=== PATIENT | male | born 1955 | race Caucasian/White ===

== ENCOUNTER → 2019-09-11 11:13 | Outpatient (CLI) | payer BC ==
[2015-01-30 11:49] VITALS: BMI 22.0
[~2019-09-11 11:13] MED LIST: ACETAMINOPHEN325 MG PO; AMBIEN5 MG PO; CLEOCIN HCL300 MG PO; DIFLUCAN100 MG PO; JEVITY 1.2 CAL237 ML GT; LEVAQUIN500 MG PO; MUCINEX600 MG PO; PROTONIX40 MG PO; PROVENTIL HFA6.7 GM INH; PULMICORT0.5 MG/21 INH
== END | disposition home or self-care (01) ==
LOC: D.RT 11:00
PROVIDERS: ATTEND Family Medicine
DX: R06.00 Dyspnea, unspecified (principal)

== ENCOUNTER 2019-11-03 15:32 | Inpatient (IN) | payer BC ==
[~2019-11-03] VITALS: Ht 170.2 cm; Wt 68.2 kg
--- NOTE | ~2019-11-03 | HEMODYNAMI ---
PATIENT:MARISSA REILLY HILARY MEDICAL RECORD: [id number] : 57 LOCATION[facility] [id number] ADMISSION DATE: 11/11/19 Generatedon:11/11/201910:18 Patient name: MARISSA REILLY Patient #: [id number] SSN: : 1955 Date of study: 11/11/2019 Page: Of Hemodynamic Procedure Report Patient Data Patient Demographics Procedure consent was obtained First Name: MARISSA Gender: Male Last Name: MELBA : 1955 [facility] Initial: HILARY Age: 64 year(s) Patient #: [id number] Race: Unknown Additional ID: [id number] Contact details Address: [address] [place] [address] State: [place] City: [place] Zip code: [address] Past Medical History Allergies: No known allergies Admission Admission Data Admission Date: 11/11/2019 Admission Time: 5:41 Room #: [facility] Weight (lbs.): 150 Weight (kg.): 68.04 Procedure Procedure Types Cath Procedure Peripheral Cath Diagnostic Procedure Photovoltaic Installer Peripheral Procedures Peripheral vascular Intervention Stent Carotid Stent Procedure Description Procedure Date Procedure Date: 11/11/2019 Procedure Start Time: 8:50 Procedure Staff Name Function Mariano Stephenson MD Performing Physician Olena Vasquez RT Test Engineering Intern Lashay Claros RN Nurse Noemy HUGHES RN Nurse Glenn Molina RT Scrub Procedure Data Cath Procedure Fluoroscopy Diagnostic fluoroscopy Total fluoroscopy Time: time: 19.8 min 19.8 min Diagnostic fluoroscopy Total fluoroscopy dose: 640 dose: 640 mGy mGy Contrast Material Contrast Material Type Amount (ml) Isovue 300 70 Diagnostic catheters Device Type Used For End Catheter Placement Merit Impress Mahoney 5FR. 100CM catheter ([id number]) Merit ULTRA BOLUS FLUSH 5Fr 90CM catheter ([id number]) Procedure Medications Medication Administration Route Dosage Lidocaine 1% added to field 20 Heparin Flush Bag added to field 2 bags (1000units/500ml NS) Heparin Flush Bag added to field 2 bags (1000units/500ml NS) Fentanyl 25 mcg Versed 0.5 mg Heparin Bolus I.V. 4000 units Fentanyl 25 mcg Versed 0.5 mg Heparin Bolus I.V. 2000 units Fentanyl I.V. 50 mcg Versed 1 mg Hemodynamics Rest Heart Rate: 79 (bpm) Snapshots Pre Cath Intra NCS Post Cath Vital Signs Time Heart Resp SPO2 etCO2 NIBP (mmHg) Rhythm Pain Sedation Rate (ipm) (%) (mmHg) Status Level (bpm) 8:38:24 84 32 100 20.3 146/89(124) NSR 0 (11) 9(A) , No pain 8:42:34 82 25 100 33 146/86(120) NSR 0 (11) 9(A) , No pain 8:46:44 86 37 100 24.8 141/87(120) NSR 0 (11) 9(A) , No pain 8:51:00 88 31 100 28.5 152/88(121) NSR 0 (11) 9(A) , No pain 8:55:10 89 24 100 32.3 143/89(121) NSR 0 (11) 9(A) , No pain 8:59:16 99 26 100 24 138/101(117) NSR 0 (11) 9(A) , No pain 9:02:02 87 20 100 32.3 143/90(115) NSR 0 (11) 9(A) , No pain 9:06:16 88 19 100 31.5 143/80(99) NSR 0 (11) 9(A) , No pain 9:10:27 85 15 100 35.3 144/79(111) NSR 0 (11) 9(A) , No pain 9:14:38 85 16 100 34.5 132/84(111) NSR 0 (11) 9(A) , No pain 9:18:41 76 14 99 36.8 146/88(127) NSR 0 (11) 9(A) , No pain 9:22:55 80 17 100 34.5 132/76(107) NSR 0 (11) 9(A) , No pain 9:27:01 82 17 100 36 140/83(113) NSR 0 (11) 9(A) , No pain 9:31:15 79 17 100 35.3 125/72(96) NSR 0 (11) 9(A) , No pain 9:35:21 83 14 100 36 131/75(112) NSR 0 (11) 9(A) , No pain 9:39:26 82 18 100 33.8 133/81(113) NSR 0 (11) 9(A) , No pain 9:43:30 80 19 100 33 141/90(122) NSR 0 (11) 9(A) , No pain 9:47:40 78 17 100 24.8 140/80(116) NSR 0 (11) 9(A) , No pain 9:51:52 82 15 100 36.8 128/75(107) NSR 0 (11) 9(A) , No pain 9:55:58 77 18 100 32.3 141/82(123) NSR 0 (11) 9(A) , No pain 10:00:10 69 19 100 29.3 125/78(106) NSR 0 (11) 9(A) , No pain 10:04:16 72 14 100 35.3 127/78(109) NSR 0 (11) 9(A) , No pain 10:08:23 82 14 100 33.1 124/74(102) NSR 0 (11) 9(A) , No pain 10:12:27 79 12 100 28.6 125/78(106) NSR 0 (11) 9(A) , No pain 10:16:31 77 15 100 35.3 126/82(110) NSR 0 (11) 9(A) , No pain Medications Time Medication Route Dose Verified Delivered Reason Notes Effectiveness by by 8:43:27 Lidocaine 1% added 20ml Mariano Quintana for local to vial Sachin Stephenson anesthetic field MD GARCIA 8:43:38 Heparin Flush added 2 Mariano Quintana used for Bag to bags Sachin Stephenson procedure (1000units/500ml field MD GARCIA NS) 8:43:39 Heparin Flush added 2 Mariano Quintana used for Bag to bags Sachin Stephenson procedure (1000units/500ml field MD GARCIA NS) 8:51:41 Fentanyl 25 Mariano Metz for sedation mcg Sachin Claros RN, MD 8:51:50 Versed 0.5 Mariano Metz for sedation mg Sachin Claros RN, MD 8:57:44 Heparin Bolus I.V. 4000 Mariano Lashay for units Sachin Claros RN anticoagulation 9:03:51 Fentanyl 25 Mariano Lashay for sedation mcg Sachin Claros RN, MD 9:03:55 Versed 0.5 Mariano Lashay for sedation mg Sachin Claros RN, MD 9:25:39 Heparin Bolus I.V. 2000 Mariano Lashay for units Sachin Claros RN anticoagulation 9:59:52 Fentanyl I.V. 50 Mariano Lashay for sedation mcg Sachin Claros RN, MD 9:59:58 Versed 1 mg Mariano Lashay for sedation Sachin Claros RN, MD Procedure Log Time Note 7:42:30 Use device set IR Diagnostic 8:08:59 A Merit Impress Mahoney 5FR. 100CM catheter ([id number]) was advanced over the wire and used for . 8:09:00 CHOICE PT Extra Support J 300cm guide wire ([id number]) opened to steril e field. 8:09:01 Micropuncture VSI 4FR kit opened to sterile field. 8:09:02 MOTT 260 wire ([id number]) opened to sterile field. 8:09:04 SHEATH 5FR [place] (XSS083) opened to sterile field. 8:09:05 GLIDE WIRE ANGLE 260cm (FM6870) opened to sterile field. 8:09:06 BENTSON 145cm wire (X44948) opened to sterile field. 8:09:07 INFLATOR BasixTOUCH (CA1924) opened to sterile field. 8:09:08 TUBING Contrast Injection High Pressure (ICR539W) opened to sterile field. 8:09:09 Tegaderm 4 x 4 (1626W) opened to sterile field. 8:09:10 Sterile Angiographic Pack opened to sterile field. 8:09:11 Bag Decanter (2002S) opened to sterile field. 8:09:13 ACIST Manifold (83896) opened to sterile field. 8:09:14 ACIST Hand Control (29307) opened to sterile field. 8:09:15 ACIST Syringe (33141) opened to sterile field. 8:09:59 A Tessella ULTRA BOLUS FLUSH 5Fr 90CM catheter ([id number]) was advanced over the wire and used for . 8:10:03 - 8:21:54 Time tracking: Regular hours (M-F 7:00 - 5:00) 8:22:10 Plan of Care:Hemodynamics will remain stable., Cardiac rhythm will remain stable., Comfort level will be maintained., Respiratory function will remain adequate., Patient/ family verbilizes understanding of procedure., Procedure tolerated without complication., Recovers from procedure without complications.. 8:22:21 Patient received from Outpatients to IR Alert and oriented. Tansferred to table in Supine position. 8:22:26 Signed procedure consent form obtained from patient. 8:22:28 - 8:22:42 H&P Date Dictated: 11/11/2019 Within 30 days and on chart., H&P Addendum completed by physician on day of procedure. (MUST COMPLETE FOR ALL OUTPATIENTS). 8:22:51 Pre-procedure instructions explained to patient. 8:22:52 Pre-op teaching completed and patient verbalized understanding. 8:22:54 Family in waiting room. 8:22:57 Patient NPO since Midnight. 8:23:07 Patient allergic to No known allergies 8:23:11 Is the patient allergic to Iodine/contrast media? No. 8:23:14 Is patient on blood thinner?Yes 8:23:18 Patient diabetic? No. 8:23:21 - 8:23:24 ----Pre-sedation anethsthesia assessment.---- 8:23:30 Previous problem with sedation/anesthesia? No ? 8:23:33 Snore? Yes 8:23:37 Sleep apnea? No 8:23:40 Deviated septum? No 8:23:44 Opens mouth fully? Yes 8:23:49 Sticks out tongue? Yes 8:23:52 Airway obstruction? No ? 8:24:12 Dentures? No ? 8:24:19 Pre procedure: right dorsailis pedis pulse 1+ Palpable, but thready & weak; easily obliterated 8:24:27 Pre procedure: right posterior tibial pulse Doppler 8:24:37 Right groin area was prepped with chlora-prep and draped in sterile fashion 8:24:41 - 8:37:14 Baseline sample Acquired. 8:37:20 Vital chart was started 8:37:54 Full Disclosure recording started 8:38:01 - 8:43:27 Lidocaine 1% 20ml vial added to field was administered by Mariano erwin MD; for local anesthetic; Verbal order read back and verified. 8:43:38 Heparin Flush Bag (1000units/500ml NS) 2 bags added to field was administered by Mariano Stephenson MD; used for procedure; Verbal order read back and verified. 8:43:39 Heparin Flush Bag (1000units/500ml NS) 2 bags added to field was administered by Mariano Stephenson MD; used for procedure; Verbal order read back and verified. 8:47:46 Fire Safety Assessment: A--An alcohol-based skin anteseptic being used preoperatively., C--Open oxygen or nitrous oxide is being used. 8:47:51 1) 90+ Normal kidney functon but urine findings or structural abnormalities or genetic trait point to kidney disease. 8:47:56 Physician arrived 8:47:57 --------ALL STOP TIME OUT------ 8:47:57 Final Timeout: patient, procedure, and site verified with staff and physician. All members of the team are in agreement. 8:50:04 Procedure started. 8:50:09 Local anesthetic to right femoral artery with Lidocaine 1% by Mariano Stephenson MD.INITIAL ACCESS ONLY 8:50:56 Patient Weight : 150 lbs 8:51:01 Arterial access obtained using ultrasound guidance. 8:51:41 Fentanyl 25 mcg was administered by Lashay Claros RN; for sedation; Verbal order read back and verified. 8:51:50 Versed 0.5 mg was administered by Lashay Claros RN; for sedation; Verba l order read back and verified. 8:57:44 Heparin Bolus 4000 units I.V. was administered by Lashay Claros RN; for anticoagulation; Verbal order read back and verified. 9:01:22 TORQUE DEVICE PLASTIC .038 ( TD01) opened to sterile field. 9:03:51 Fentanyl 25 mcg was administered by Lashay Claros RN; for sedation; Verbal order read back and verified. 9:03:55 Versed 0.5 mg was administered by Lashay Claros RN; for sedation; Verba l order read back and verified. 9:06:32 Cook RAABE 6FR. 90cm guide sheath opened to sterile field. 9:14:25 SPIDER EMBOLIC PROTECTION DEVICE 5MM ([id number]) opened to sterile field. 9:18:32 Inflate balloon Inflation number: 1 A VIATRAC 4 x 2 x 135 balloon ([id number]) was prepped and advanced across the Undefined1 , then inflated . 9:18:48 PROTEGE RX TAPERED 8-6MM X 30MM X 135CM stent ([id number]) was deploye d across Undefined1 . 9:19:02 Inflate balloon Inflation number: 2 A VIATRAC 6 x 2 x 135 balloon ([id number]) was prepped and advanced across the Undefined1 , then inflated . 9:25:39 Heparin Bolus 2000 units I.V. was administered by Lashay Claros RN; for anticoagulation; Verbal order read back and verified. 9:31:05 CXI SUPPORT .035 135 CM STR catheter (I19655) opened to sterile field. 9:45:47 ROADRUNNER .035 145 glide wire (L68304) opened to sterile field. 9:50:38 EVERFLEX 8 x 60 Stent ([id number]) was deployed across Undefined2 . 9:51:12 Inflate balloon Inflation number: 1 A Evercross 8 x 6 x 135 Balloon ([id number]) was prepped and advanced across the Undefined2 , then inflated . 9:59:52 Fentanyl 50 mcg I.V. was administered by Lashay Claros RN; for sedation ; Verbal order read back and verified. 9:59:58 Versed 1 mg was administered by Lashay Claros RN; for sedation; Verbal order read back and verified. 10:00:23 SHEATH 6FR [place] (KBB677) opened to sterile field. 10:00:29 MYNX AIRPLANE FUELER 6FR/7FR (TS0904) opened to sterile field. 10:06:38 Procedure ended.(Physican Out) 10:06:56 Fluoroscopy time 19.80 minutes. 10:07:01 Fluoroscopy dose: 640 mGy 10:07:01 Flurop Dose total: 640 10:07:18 Contrast amount:Isovue 300 70ml. 10:07:34 Procedure and supply charges have been captured, reviewed, submitted an d are correct. 10:17:42 Report given to CVICU. 10:18:09 Vital chart was stopped Intervention Summary Intervention Notes Time ActionType Lesion and Equipment Used Action# Pressure Duration Attributes 9:18:32 Inflate Undefined1 VIATRAC 4 x 2 x 1 0 00:00 balloon 135 balloon ([id number]) 9:18:48 Deploy self Undefined1 PROTEGE RX 1 expanding TAPERED 8-6MM X stent 30MM X 135CM stent ([id number]) 9:19:02 Inflate Undefined1 VIATRAC 6 x 2 x 2 0 00:00 balloon 135 balloon ([id number]) 9:50:38 Deploy self Undefined2 EVERFLEX 8 x 60 1 expanding Stent stent ([id number]) 9:51:12 Inflate Undefined2 Evercross 8 x 6 1 0 00:00 balloon x 135 Balloon ([id number]) Device Usage Item Name Manufacture Quantity Catalog Number [facility] Minimal Lot# / Charge Number Stock Stock Serial# Code Merit Impress Merit 1 [id number] 190071 5 Mahoney 5FR. Medical 100CM catheter ([id number]) CHOICE PT Extra Hamlin 1 [id number] 24080511 972718 5 Support J 300cm Scientific guide wire (7340205T1) Micropuncture VSI VASCULAR 1 7266V 276609 556668 5 VSI 4FR kit SOLUTIONS MOTT 260 wire Cook Medical 1 P96882 298733 33600 905896 5 (L21736) SHEATH 5FR Terumo 1 XFB709 226706 667996 319892 5 [place] (WGF076) GLIDE WIRE Terumo 1 KI6659 877926 805324 326482 5 ANGLE 260cm (LN6996) BENTSON 145cm Cook Medical 1 R19971 043442 131212 5 wire (C58065) INFLATOR Merit 1 BP1271 360784 535133 328743 5 [employer] (RF9011) TUBING Contrast Merit 1 [id number] 064655 921872 825380 5 Injection High Medical Pressure (BTD910A) Tegaderm 4 x 4 3M 1 1626W 885589 537484 470557 5 (1626W) Sterile Cardinal 1 [id number] 844891 473502 5 Angiographic Health Pack Bag Decanter Microtek 1 2001S 012964 16035 446842 5 (2001S) Medical Inc. ACIST Manifold Acist 1 15599 264503 410369 999980 5 (72282) Medical Systems Inc ACIST Hand Acist 1 71083 156258 640021 349919 5 Control (45778) Medical Systems Inc ACIST Syringe Acist 1 80757 793993 961779 327629 20 (46248) Medical Systems Inc Merit ULTRA Merit 1 [id number] 405768 260903 5 BOLUS FLUSH 5Fr Medical 90CM catheter ([id number]) TORQUE DEVICE Hamlin 1 TD01 728484 014836 096143 5 PLASTIC .038 ( Scientific TD01) Cook RAABE 6FR. Cook Medical 1 B19208 969689 417929 5 90cm guide sheath SPIDER EMBOLIC Medtronic 1 [id number]-[id number] 393104 886955 5 PROTECTION DEVICE 5MM ([id number]) VIATRAC 4 x 2 x Tellez 1 6813700-11 325305 555980 898452 5 135 balloon Vascular ([id number]) VIATRAC 6 x 2 x Tellez 1 0607794-12 962897 536232 150046 5 135 balloon Vascular ([id number]) PROTEGE RX Medtronic 1 QADH-8-0-30-135 950738 875389 175724 5 [id number] TAPERED 8-6MM X 30MM X 135CM stent ([id number]) CXI SUPPORT AppNeta Medical 1 U12707 616399 524265 976275 5 .035 135 CM STR catheter (N58138) ROADRUNNER .035 Cook Medical 1 L32083 049532 207973 809730 5 145 glide wire (J60012) EVERFLEX 8 x 60 Medtronic 1 [id number] 054942 590871 160225 5 [id number] Stent [id number] ([id number]) Evercross 8 x 6 Medtronic 1 [id number] 456865 397857 469219 5 x 135 Balloon ([id number]) SHEATH 6FR Terumo 1 BDX335 241869 831094 802910 40 [place] (LVY226) MYNX AIRPLANE FUELER Access 1 CJ3908 406284 419701 5 [id number] 6FR/7FR Closure (AV4473) Signature Audit [place] Stage Time Signature Unsigned Intra-Procedure 11/11/2019 Olena Vasquez 10:18:05 AM RT(R) [place] [id number] [place] [address]
[2019-11-11] VITALS (25 sets, daily range): BP systolic 87–146; BP diastolic 45–79; Ht 170.2 cm; Wt 68.2 kg
[2019-11-11 06:30] LABS: CALC OSMOLALITY 280 mosm/kg (275-300); CALCIUM 9.4 mg/dL (8.5-10.1); CARBON DIOXIDE 29.4 mmol/L (21.0-32.0); CHLORIDE - SERUM 105 mmol/L (98-107); CREATININE - SERUM 0.8 mg/dL (0.6-1.3); GLUCOSE 98 mg/dL (74-106); POTASSIUM - SERUM 4.6 mmol/L (3.5-5.1); SODIUM 140 mmol/L (136-145); UREA NITROGEN 18 mg/dL (7-18); eGFR NON AFRICAN AMERICAN > 90 mL/min (90-120)
[2019-11-11 06:34] LABS: APTT 27.3 SECONDS (22.8-39.4)
[2019-11-11 06:35] LABS: INR 0.99 (0.85-1.17)
[2019-11-11 06:42] LABS: BASOPHILS 0.2 % (0-2); EOSINOPHILS 3.1 % (0-7); HEMATOCRIT 40.4 % (42.0-54.0); HEMOGLOBIN 13.7 g/dL (13.5-17.5); IMMATURE GRANULOCYTES 0.2 % (0-5); LYMPHOCYTES 7.2 % (15-50); MCH 31.4 pg (26.0-34.0); MCHC 33.9 g/dL (31.0-37.0); MCV 92.4 fL (80.0-100.0); MEAN PLATELET VOLUME 9.2 fL (7.4-10.4); MONOCYTES 11.9 % (2-11); NEUTROPHILS 77.4 % (40-80); PLATELET COUNT 171 10x3/uL (130-400); RBC 4.37 10x6/uL (4.20-6.10); RDW 12.6 % (11.5-14.5); WBC 5.5 10x3/uL (4.8-10.8)
[2019-11-11] MEDS ORDERED: PLAVIX75 MG PO (07:43)
[2019-11-11] MEDS ORDERED: ULTRAM50 MG PO (07:43)
--- NOTE | 2019-11-11 10:40 | NUR ---
PT ARRIVED BY STRETCHER. PLACED ON MONITORS. ASSESSMENT COMPLETED. VSS AT THIS TIME. FAMILY AT BEDSIDE.
--- NOTE | 2019-11-11 10:55 | NUR ---
PT RESTING COMFORTABLY. VSS. RIGHT GROIN DRESSING C/D/I. NO S/S OF HEMATOMA NOTED. CALL LIGHT WITHIN REACH. NO NEEDS AT THIS TIME.
--- NOTE | 2019-11-11 11:10 | NUR ---
PT RESTING COMFORTABLY. VSS. RIGHT GROIN DRESSING C/D/I. NO S/S OF HEMATOMA NOTED. CALL LIGHT WITHIN REACH. PPP X 4
--- NOTE | 2019-11-11 11:25 | NUR ---
RIGHT GROIN DRESSING C/D/I. NO S/S OF HEMATOMA NOTED. CALL LIGHT WITHIN REACH. VSS AT THIS TIME.
--- NOTE | 2019-11-11 12:00 | NUR ---
RIGHT GROIN DRESSING C/D/I. NO S/S OF HEMATOMA NOTED. CALL LIGHT WITHIN REACH. VSS AT THIS TIME. PPP X 4. NO NEURO CHANGES NOTED.
--- NOTE | 2019-11-11 12:30 | NUR ---
PT VOIDED APPROX 150cc OF YELLOW URINE IN URINAL WITHOUT DIFFICULTY.
--- NOTE | 2019-11-11 12:40 | NUR ---
PT'S AT BEDSIDE WITH TEDDY BUTTON SUPPLIES. PLAVIX AND ULTRAM CRUSHED AND PT'S GAVE MEDS VIA TEDDY BUTTON. TOLERATED WELL.
--- NOTE | 2019-11-11 13:33 | NUR ---
PT C/O INC PAIN IN LOWER BACK. NO BRUISING NOTED TO BACK. ASSESSED BY LOG ROLL. CALLED DR. WALKER AND UPDATED HIM. ORDERS RECEIVED.
--- NOTE | 2019-11-11 13:40 | NUR ---
PT RESTLESS. IV PAIN MEDICATION ADMINISTERED PER MD ORDERS. PT HAS DRY MOUTH AND STATES "MY MOUTH FEELS FUNNY". PUPILS EQUAL AND REACTIVE. ALL BOOKS SALESPERSON EQUAL AND REACTIVE. RIGHT GROIN DRESSING C/D/I. NO S/S OF HEMATOMA NOTED. PT ABLE TO SMILE AND BOTH SIDES OF FACE HAVE EQUAL MOVEMENT. PT STICKS OUT TONGUE AND IT IS SLIGHT RIGHT OF MIDLINE. WILL REASSESS IN A FEW MINUTES TO SEE IF DRY MOUTH RESOLVES WHEN PAIN MEDICATION IS ON BOARD AND PT IS MORE COMFORTABLE.
--- NOTE | 2019-11-11 13:50 | NUR ---
PT MORE RELAXED. REPORTS PAIN IS IMPROVED AND RATES IT 4/10 AT THIS TIME. VSS. PT'S SPEECH IS BACK TO BASELINE AND REPORTS HIS MOUTH DOESN'T "FEEL FUNNY" ANYMORE. GIVEN MOUTH SWABS TO HELP WITH HIS DRY MOUTH. NO NEURO DEFICITS NOTED.
--- NOTE | 2019-11-11 14:52 | NUR ---
PT'S HEAD OF BED INC TO 45 DEGREES. TOLERATED WELL. RIGHT GROIN DRESSING C/D/I. NO S/S OF HEMATOMA NOTED. SMALL AMOUNT OF BRUISING NOTED AT DRESSING SITE. PT'S AT BEDSIDE. BOLUS FEEDING COMPLETED TO PT'S TEDDY BUTTON. JEVITY 1.2. TOLERATED WELL.
--- NOTE | 2019-11-11 15:10 | NUR ---
DR. HACKETT AT BEDSIDE. SPEAKING WITH PT AND PT'S . UPDATED ON PT'S STATUS. PT'S RIGHT GROIN DRESSING C/D/I. NO S/S OF HEMATOMA NOTED.
--- NOTE | 2019-11-11 16:13 | NUR ---
REPORT GIVEN TO OLIVER AMIN RN.
--- NOTE | 2019-11-11 16:28 | NUR ---
REC'D PT TO CVICU. ALL MONITORING EQUIPMENT ATTACHED AND ALARMS SET.
--- NOTE | 2019-11-11 19:10 | NUR ---
RECIVED BEDSIDE SHIFT REPORT. PT IS SITTING UP HOB AT 30DEGREESE A&OX4. HIS VSS. LEFT WRIST SL CDI C NO S/S OF INFILTRATION. HE HAS A CHRONIC PEG TUBE CDI TO UPPER MID ABD, HE FEEDS SELF. RIGHT GROIN PROCEDURE SITE IS CDI WITH SLIGHTL DARK RED BLOOD THAT HAS BEEN THERE SINCE EARLIER TODAY WITH NO S/S OF FURTHER BLEEDING. SIT SHOWS NO SWELLING OR BRUISING. PT VOICES"IT DOESNT HURT". PERIPERIAL PULSES ARE +2 BILAT. ORIENTED TO USE OF CALL LIGHT WITHIN UNDERSTANDING. PROVIDED PT INCINTIVE SPIROMETER AND SHOWED HIM HOW TO USE AND TO TRY TO DO EVERY 2 HOURS TO PREVENT PNEUMONIA. HE VERBALIZED UNDERSTANDING. HE IS PLEASANT AND C/O OF "no" PAIN AT THIS TIME. FULL ASSESSMETN WILL BE DONE AND DOC IN FLOWSHEET. HIS BED IS LOW,SIDE RAISLX2, CALL LIGHT WITHIN REACH. WILL CONITNUE TO MONITOR
--- NOTE | 2019-11-11 20:41 | NUR ---
PT IS RESTING WITH EYES CLOSED, VSS. PAIN MEDCINE HAS SEEMS TO HELP PT'S PAIN AND ALLOWED HIM TO REST. BED IS LOW,SIDE RAISLX2,CALL LIGHT WITHIN REACH. WILL CONITNUE TO MONITOR
--- NOTE | 2019-11-11 21:38 | NUR ---
PT USED CALL LIGHT AND ASKED IF HE COULD BE DISCONECTED TO GO TO THE BR. STAND BY ASSIST TO BATHROOM. PT BALANCE IS GOOD. HE VOIDED MEDIUM AMOUNT YELLOW URINE. BACK TO BED SAFELY. VSS. BED IS LEFT LOW,SIDE RAISLX2,CALL LIGHT WITHIN REACH. WILL CONTINUE TO MONITOR
--- NOTE | 2019-11-11 23:30 | NUR ---
PT IS SITTING ON SIDE OF BED, VSS. HE VOICES"I COULDNT SLEEP SO I DECIDED I WOULD JUST SIT UP". HE VOICES PAIN "IS OK RIGHT NOW, I DONT HAVE ANY". RE-ASSESSMENT DONE AND WILL CHART IN FLOWSHEET. HE VOICES NO NEED OR COMPLAINTS. BED IS LOW,SIDE RAILSX2,CALL LIGHT WITHIN REACH. WILL CONINTUE TO MONITOR
[2019-11-12] VITALS (10 sets, daily range): BP systolic 94–125; BP diastolic 52–65
--- NOTE | 2019-11-12 01:45 | NUR ---
PT IS RESTING IN BED WITH EYES CLOSED. VSS, NO DISTRESS NOTED. BED IS LOW,SIDE RAISLSX2,CALL LIGHT WITHIN REACH. WILL CONINTUE TO MONITOR
--- NOTE | 2019-11-12 03:00 | NUR ---
PT USED CALL LIGHT TO ASK "CAN I HAVE ANOTHER PAIN SHOT" VOICES PAIN "4/10" NUMERIC SCALE. VSS. PERFORMED RE-ASSESSMENT AT THIS TIME AND WILL DOC IN FLOWSHEET. NO OTHER NEEDS VOICED. BED IS LEFT LOW,SIDE RAISLX2,CALL LIGHT WTIHIN REACH. WILL CONITNUE TO MONITOR
--- NOTE | 2019-11-12 05:02 | NUR ---
PT USED CALL LIGHT AND ASKED TO GO TO BR. STAND BY ASSIST TO BR AND HE VOIDED MEDIUM AMOUNT YELLOW URINE. BACK TO BED SAFELY. PT SAT ON SIDE OF BED AND FED HIMSELF 2 JEVITY 1.2CAL BOTTLES THROUGH TEDDY BUTTON. VSS. NO NEEDS OR C/O VOICED. BED IS LOW,SIDE RAISLX2,CALL LIGHT WITHIN REACH. WILL CONITNUE TO MONITOR
--- NOTE | 2019-11-12 06:40 | NUR ---
PT IS SITTING UP IN BED WATCHING TV. VSS. HE VOICES "NOT RIGHT NOW" FOR ANY PAIN. NO NEEDS VOICED. BED IS LOW,SIDE RAILSX2,CALL LIGHT WITHIN REACH.
[2019-11-12 06:45] LABS: BASOPHILS 0.2 % (0-2); EOSINOPHILS 1.8 % (0-7); HEMATOCRIT 36.2 % (42.0-54.0); HEMOGLOBIN 12.1 g/dL (13.5-17.5); LYMPHOCYTES 9.9 % (15-50); MCH 31.2 pg (26.0-34.0); MCHC 33.4 g/dL (31.0-37.0); MCV 93.3 fL (80.0-100.0); MEAN PLATELET VOLUME 9.2 fL (7.4-10.4); NEUTROPHILS 81.1 % (40-80); PLATELET COUNT 148 10x3/uL (130-400); RBC 3.88 10x6/uL (4.20-6.10); RDW 12.9 % (11.5-14.5); WBC 5.6 10x3/uL (4.8-10.8)
[2019-11-12 06:51] LABS: CALC OSMOLALITY 280 mosm/kg (275-300); CALCIUM 8.7 mg/dL (8.5-10.1); CARBON DIOXIDE 27.3 mmol/L (21.0-32.0); CHLORIDE - SERUM 103 mmol/L (98-107); CREATININE - SERUM 0.9 mg/dL (0.6-1.3); POTASSIUM - SERUM 4.2 mmol/L (3.5-5.1); SODIUM 137 mmol/L (136-145); UREA NITROGEN 22 mg/dL (7-18); eGFR NON AFRICAN AMERICAN > 90 mL/min (90-120)
[2019-11-12 06:52] LABS: GLUCOSE 176 mg/dL (74-106)
--- NOTE | 2019-11-12 07:30 | NUR ---
RESTING IN BED NO DISTRESS. SKIN WARM AND DRY. RIGHT GROIN DRESSING WITH SMALL AREA OF OLD BLOOD. NO SWELLING SOME BRUISING NOTED. IV LEFT FOREARM SALINE LOCK IV WITHOUT REDNESS OR SWELLING. MONITOR SR.
--- NOTE | 2019-11-12 08:51 | NUR ---
AMBULATED TO BATHROOM GOOD GAIT. NO DISTRESS. RESTING JUVITY 1.2 FOR SELF ADMINISTRATION OF TUBE FEEDING. IR NURSE HERE. PATIENT TO BE DISCHARGE TODAY.
--- NOTE | 2019-11-12 09:45 | NUR ---
REVIEWED DISCHARGE INSTRUCTION WITH PATIENT AND . QUESTIONS ANSWERED. MEDS CRUSHED AND PATIENT ADMINISTERED PER TEDDY LEFT ABD.
== END 2019-11-12 10:37 | disposition home or self-care (01) | DRG 36 ==
LOC: D.SDCHOLD 11-11 05:41 → D.CLR 11-11 05:41 → D.SDCHOLD 11-11 08:00 → D.CLR 11-11 10:47 → D.CVICU 11-11 16:20
PROVIDERS: ADMIT Radiology Diagnostic Radiology; ATTEND Radiology Diagnostic Radiology
PROC: 03733DZ Dilation of Right Subclavian Artery with Intraluminal Device, Percutaneous Approach (ICD-10-PCS; 2019-11-11)
PROC: 037K3DZ Dilation of Right Internal Carotid Artery with Intraluminal Device, Percutaneous Approach (ICD-10-PCS; principal; 2019-11-11 08:00)
DX: I65.23 Occlusion and stenosis of bilateral carotid arteries (principal); Z85.89 Personal history of malignant neoplasm of other organs and systems; I25.10 Atherosclerotic heart disease of native coronary artery without angina pectoris; I70.8 Atherosclerosis of other arteries

== ENCOUNTER → 2019-12-25 12:59 | Outpatient (CLI) | payer BC ==
[2019-11-11 10:53] VITALS: BMI 23.5
[~2019-12-25 12:59] MED LIST changes: +PLAVIX75 MG PO; +ULTRAM50 MG PO
== END | disposition home or self-care (01) ==
LOC: D.CT 12:59
PROVIDERS: ATTEND Internal Medicine Pulmonary Disease
DX: J98.4 Other disorders of lung (principal)